=== PATIENT | female | born 1995 | race African-American/Black ===

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

== ENCOUNTER 2018-04-23 09:46 | Emergency (ER) | payer MEDICARE ==
[~2018-04-23] VITALS: Ht 165.1 cm; Wt 83.2 kg
[2018-04-23 09:50] VITALS: BP 118/63; Ht 165.1 cm; Wt 83.2 kg
[2018-04-23] MEDS ORDERED: PRENAVITE1 TAB PO (09:52)
[2018-04-23 10:14] LABS: BASOPHILS 0.2 % (0-2); EOSINOPHILS 1.4 % (0-7); HEMATOCRIT 43.1 % (36.0-48.0); HEMOGLOBIN 15.1 g/dL (12-16); IMMATURE GRANULOCYTES 0.2 % (0-5); LYMPHOCYTES 30.5 % (15-50); MCH 31.9 pg (26.0-34.0); MCV 90.9 fL (80.0-100.0); MEAN PLATELET VOLUME 11.5 fL (7.4-10.4); MONOCYTES 6.5 % (2-11); NEUTROPHILS 61.2 % (40-80); PLATELET COUNT 199 10x3/uL (130-400); RBC 4.74 10x6/uL (4.00-5.40); RDW 12.6 % (11.5-14.5); WBC 6.3 10x3/uL (4.8-10.8)
[2018-04-23 10:21] LABS: HCG SERUM POSITIVE (NEGATIVE)
[2018-04-23 10:26] LABS: APPEARANCE HAZY (CLEAR); BILIRUBIN NEGATIVE (NEGATIVE); COLOR YELLOW (YELLOW); GLUCOSE NEGATIVE (NEGATIVE); KETONE NEGATIVE (NEGATIVE); NITRITE NEGATIVE (NEGATIVE); PH 6.5 (5.0-6.0); PROTEIN NEGATIVE (NEGATIVE); UROBILINOGEN NORMAL (NORMAL)
[2018-04-23 10:29] LABS: ALBUMIN 3.9 g/dL (3.4-5.0); ALKALINE PHOSPHATASE 74 U/L (46-116); ALT (SGPT) 17 U/L (10-68); BILIRUBIN - TOTAL 0.49 mg/dL (0.2-1.3); CALC OSMOLALITY 278 mosm/kg (275-300); CALCIUM 8.9 mg/dL (8.5-10.1); CARBON DIOXIDE 25.8 mmol/L (21.0-32.0); CHLORIDE - SERUM 104 mmol/L (98-107); CREATININE - SERUM 0.7 mg/dL (0.6-1.3); GLUCOSE 89 mg/dL (74-106); POTASSIUM - SERUM 3.4 mmol/L (3.5-5.1); PROTEIN - SERUM 8.5 g/dL (6.4-8.2); SODIUM 141 mmol/L (136-145); UREA NITROGEN 10 mg/dL (7-18); eGFR NON AFRICAN AMERICAN > 90 mL/min (90-120)
[2018-04-23 10:30] LABS: BACTERIA MANY /hpf (NONE SEEN); RED CELLS - URINE RARE /hpf (0-5); WHITE CELLS - URINE 0-5 /hpf (0-5)
== END 2018-04-23 12:41 | disposition home or self-care (01) ==
LOC: D.ER 09:46
PROVIDERS: Family Medicine
DX: O26.891 Other specified pregnancy related conditions, first trimester (principal); Z3A.01 Less than 8 weeks gestation of pregnancy; R10.9 Unspecified abdominal pain; M54.5 Low back pain

== ENCOUNTER → 2018-04-25 07:57 | Outpatient (CLI) | payer MEDICARE ==
[2018-04-23 09:50] VITALS: BMI 30.5
[~2018-04-25 07:57] MED LIST: PRENAVITE1 TAB PO
== END | disposition home or self-care (01) ==
LOC: D.LABREF 04-23 14:03
DX: R10.9 Unspecified abdominal pain (principal)

== ENCOUNTER 2018-07-16 09:44 | Emergency (ER) | payer MEDICARE, MEDICAID ==
[~2018-07-16] VITALS: Ht 165.1 cm; Wt 85.5 kg
[2018-07-16 09:47] VITALS: Ht 165.1 cm; Wt 85.5 kg
[2018-07-16 10:48] LABS: BASOPHILS 0.2 % (0-2); HEMATOCRIT 38.4 % (36.0-48.0); HEMOGLOBIN 13.4 g/dL (12-16); IMMATURE GRANULOCYTES 0.3 % (0-5); LYMPHOCYTES 19.8 % (15-50); MCH 31.7 pg (26.0-34.0); MCHC 34.9 g/dL (31.0-37.0); MCV 90.8 fL (80.0-100.0); MEAN PLATELET VOLUME 11.8 fL (7.4-10.4); MONOCYTES 4.4 % (2-11); NEUTROPHILS 74.3 % (40-80); RBC 4.23 10x6/uL (4.00-5.40); WBC 9.1 10x3/uL (4.8-10.8)
[2018-07-16 10:49] LABS: PLATELET COUNT 157 10x3/uL (130-400)
[2018-07-16 11:06] LABS: ALBUMIN 3.3 g/dL (3.4-5.0); ALKALINE PHOSPHATASE 78 U/L (46-116); ALT (SGPT) 22 U/L (10-68); AMYLASE - SERUM 29 U/L (25-115); BILIRUBIN - TOTAL 0.23 mg/dL (0.2-1.3); CALC OSMOLALITY 272 mosm/kg (275-300); CALCIUM 8.7 mg/dL (8.5-10.1); CARBON DIOXIDE 25.9 mmol/L (21.0-32.0); CHLORIDE - SERUM 104 mmol/L (98-107); CREATININE - SERUM 0.7 mg/dL (0.6-1.3); GLUCOSE 75 mg/dL (74-106); LIPASE 88 U/L (73-393); POTASSIUM - SERUM 3.6 mmol/L (3.5-5.1); PROTEIN - SERUM 7.4 g/dL (6.4-8.2); SODIUM 138 mmol/L (136-145); TROPONIN-I < 0.017 ng/mL (0.000-0.060); UREA NITROGEN 8 mg/dL (7-18); eGFR NON AFRICAN AMERICAN > 90 mL/min (90-120)
[2018-07-16 11:07] LABS: APPEARANCE SL CLDY (CLEAR); BILIRUBIN NEGATIVE (NEGATIVE); COLOR YELLOW (YELLOW); GLUCOSE NEGATIVE (NEGATIVE); KETONE NEGATIVE (NEGATIVE); NITRITE NEGATIVE (NEGATIVE); PROTEIN NEGATIVE (NEGATIVE); SPECIFIC GRAVITY 1.015 (1.005-1.020); WHITE CELLS - URINE OCC /hpf (0-5)
[2018-07-16 11:08] LABS: BACTERIA MANY /hpf (NONE SEEN); EPITHELIAL CELLS 0-5 /hpf (0-5); MUCUS <1+ /lpf (NONE SEEN)
[2018-07-16 14:20] VITALS: BP 108/62
== END 2018-07-16 14:20 | disposition home or self-care (01) ==
LOC: D.ER 09:44
PROVIDERS: Family Medicine
DX: R10.31 Right lower quadrant pain (principal); R82.71 Bacteriuria

== ENCOUNTER 2018-09-19 19:39 | Outpatient (CLI) | payer MEDICARE, MEDICAID ==
[2018-07-16 09:47] VITALS: BMI 31.3
[2018-09-19 19:52] LABS: APPEARANCE CLEAR (CLEAR); BILIRUBIN NEGATIVE (NEGATIVE); COLOR YELLOW (YELLOW); GLUCOSE NEGATIVE (NEGATIVE); KETONE NEGATIVE (NEGATIVE); NITRITE NEGATIVE (NEGATIVE); PROTEIN NEGATIVE (NEGATIVE); UROBILINOGEN NORMAL (NORMAL)
[2018-09-19 19:58] LABS: BACTERIA MANY /hpf (NONE SEEN); EPITHELIAL CELLS 0-5 /hpf (0-5); RED CELLS - URINE 0-5 /hpf (0-5); WHITE CELLS - URINE 0-5 /hpf (0-5)
== END 2018-09-19 20:39 | disposition home or self-care (01) ==
LOC: D.LDO 19:39
PROVIDERS: ATTEND Obstetrics & Gynecology
DX: O26.892 Other specified pregnancy related conditions, second trimester (principal); Z3A.21 21 weeks gestation of pregnancy

== ENCOUNTER → 2018-10-09 20:08 | Outpatient (CLI) | payer MEDICARE, MEDICAID ==
[2018-07-16 09:47] VITALS: BMI 31.3
[~2018-10-09 20:08] MED LIST changes: +TUMS X-STR300 MG
[2018-10-09 21:01] LABS: APPEARANCE CLEAR (CLEAR); COLOR YELLOW (YELLOW); NITRITE NEGATIVE (NEGATIVE); SPECIFIC GRAVITY 1.015 (1.005-1.020)
[2018-10-09 21:02] LABS: BILIRUBIN NEGATIVE (NEGATIVE); GLUCOSE 50 mg/dL (NEGATIVE); KETONE NEGATIVE (NEGATIVE); PROTEIN NEGATIVE (NEGATIVE); UROBILINOGEN NORMAL (NORMAL)
== END | disposition home or self-care (01) ==
LOC: D.LDO 20:08
PROVIDERS: ATTEND Obstetrics & Gynecology
DX: O26.893 Other specified pregnancy related conditions, third trimester (principal); Z3A.29 29 weeks gestation of pregnancy

== ENCOUNTER → 2018-11-11 12:28 | Outpatient (CLI) | payer MEDICARE, OTHER, MEDICAID ==
[2018-07-16 09:47] VITALS: BMI 31.3
[2018-11-11 13:35] LABS: APPEARANCE CLEAR (CLEAR); BILIRUBIN NEGATIVE (NEGATIVE); COLOR YELLOW (YELLOW); GLUCOSE NEGATIVE (NEGATIVE); KETONE NEGATIVE (NEGATIVE); NITRITE NEGATIVE (NEGATIVE); PROTEIN NEGATIVE (NEGATIVE); SPECIFIC GRAVITY 1.015 (1.005-1.020); UROBILINOGEN NORMAL (NORMAL)
== END | disposition home or self-care (01) ==
LOC: D.LDO 12:28
PROVIDERS: ATTEND Obstetrics & Gynecology
DX: R19.7 Diarrhea, unspecified (principal)

== ENCOUNTER → 2018-11-19 09:40 | Outpatient (CLI) | payer MEDICARE, OTHER, MEDICAID ==
[2018-07-16 09:47] VITALS: BMI 31.3
[2018-11-19 10:33] LABS: APPEARANCE SL CLDY (CLEAR); BILIRUBIN NEGATIVE (NEGATIVE); COLOR YELLOW (YELLOW); GLUCOSE NEGATIVE (NEGATIVE); KETONE NEGATIVE (NEGATIVE); NITRITE NEGATIVE (NEGATIVE); PROTEIN NEGATIVE (NEGATIVE); RED CELLS - URINE 25-50 /hpf (0-5); SPECIFIC GRAVITY 1.015 (1.005-1.020); UROBILINOGEN NORMAL (NORMAL); WHITE CELLS - URINE RARE /hpf (0-5)
[2018-11-19 10:34] LABS: BACTERIA MODERATE /hpf (NONE SEEN); EPITHELIAL CELLS 0-5 /hpf (0-5)
== END | disposition home or self-care (01) ==
LOC: D.LDO 09:40
PROVIDERS: ATTEND Obstetrics & Gynecology
DX: O26.893 Other specified pregnancy related conditions, third trimester (principal); Z3A.35 35 weeks gestation of pregnancy

== ENCOUNTER → 2018-12-03 15:37 | Outpatient (CLI) | payer MEDICARE, OTHER, MEDICAID ==
[2018-07-16 09:47] VITALS: BMI 31.3
[2018-12-03 16:59] LABS: APPEARANCE SL CLDY (CLEAR); BILIRUBIN NEGATIVE (NEGATIVE); COLOR YELLOW (YELLOW); GLUCOSE 100 mg/dL (NEGATIVE); KETONE SMALL mg/dL (NEGATIVE); NITRITE NEGATIVE (NEGATIVE); PROTEIN NEGATIVE (NEGATIVE); UROBILINOGEN NORMAL (NORMAL)
== END | disposition home or self-care (01) ==
LOC: D.LDO 15:37
PROVIDERS: ATTEND Obstetrics & Gynecology
DX: O26.893 Other specified pregnancy related conditions, third trimester (principal); Z3A.37 37 weeks gestation of pregnancy

== ENCOUNTER 2018-12-16 20:24 | Inpatient (IN) | payer MEDICARE, OTHER, MEDICAID ==
[~2018-12-16] VITALS: Ht 165.1 cm; Wt 96.4 kg
[2018-12-16 21:08] LABS: HEMATOCRIT 36.5 % (36.0-48.0); HEMOGLOBIN 12.8 g/dL (12-16); MCH 29.2 pg (26.0-34.0); MCHC 35.1 g/dL (31.0-37.0); MCV 83.1 fL (80.0-100.0); MEAN PLATELET VOLUME 12.7 fL (7.4-10.4); RBC 4.39 10x6/uL (4.00-5.40); RDW 13.6 % (11.5-14.5); WBC 8.9 10x3/uL (4.8-10.8)
[2018-12-16 21:20] VITALS: BP 119/69; Ht 165.1 cm; Wt 96.4 kg
[2018-12-16 23:10] LABS: APPEARANCE CLEAR (CLEAR); BILIRUBIN NEGATIVE (NEGATIVE); COLOR YELLOW (YELLOW); GLUCOSE NEGATIVE (NEGATIVE); KETONE NEGATIVE (NEGATIVE); NITRITE NEGATIVE (NEGATIVE); PROTEIN NEGATIVE (NEGATIVE); UROBILINOGEN NORMAL (NORMAL)
--- NOTE | 2018-12-17 18:17 | MORECARE ---
CASE MANAGEMENT DISCHARGE SUMMARY PATIENT: MARY BETH LONG UNIT: [id number] ADM DATE: 12/16/18 AGE: 23 : [birth year] SEX: F ROOM/BED: D.1277 AUTHOR: ADRIANA,DOC PHYSICIAN: REFERRING PHYSICIAN: SAIGE TROTTER MD DATE OF SERVICE: 12/17/18 Discharge Plan Patient Name: MARY BETH LONG [facility] [facility] 1995 Planned Disposition: Home Anticipated Discharge Date: 12/20/18 Discharge Date: Expected LOS: 4 Initial Reviewer: [email or web address] Initial Review Date: 12/16/2018 Generated: 12/17/18 7:17 pm DCPIA - Discharge Planning Initial Assessment Updated by [email or web address]: Justine Davis on 12/17/18 6:16 pm * Is the patient Alert and Oriented? Yes * How many steps to enter\exit or inside your home? * PCP [facility] * Pharmacy [facility] in [place] * Preadmission Environment Home with Family * ADLs Independent * Equipment Bedside Commode Cane Rolling Walker Wheelchair * List name and contact numbers for known caregivers / representatives who currently or will assist patient after discharge: Dc Claudio - [facility] - [phone] * Verbal permission to speak to the caregivers and representatives has been obtained from the patient. Yes * Community resources currently utilized None * Additional services required to return to the preadmission environment? No * Can the patient safely return to the preadmission environment? Yes * Has this patient been hospitalized within the prior 30 days at any hospital? No Patient Name: MARY BETH LONG Page [id number] All edits/amendments must be made on the electronic document DICTATION DATE: 12/17/181815 INSPECTOR MECHANICAL: GUNNER 12/17/181815 RPT#: [id number] DC DATE: STATUS: ADM IN [facility] [address] [place] [address] END OF REPORT
--- NOTE | 2018-12-17 18:26 | MORECARE ---
CASE MANAGEMENT DISCHARGE SUMMARY PATIENT: MARY BETH LONG UNIT: [id number] ADM DATE: 12/16/18 AGE: 23 : [birth year] SEX: F ROOM/BED: D.1277 AUTHOR: ADRIANA,DOC PHYSICIAN: REFERRING PHYSICIAN: MARIN TROTTER MD DATE OF SERVICE: 12/17/18 Discharge Plan Patient Name: MARY BETH LONG Facility: [facility]:[employer] : 1995 Planned Disposition: Home Anticipated Discharge Date: 12/20/18 Discharge Date: Expected LOS: 4 Initial Reviewer: [email or web address] Initial Review Date: 12/16/2018 Generated: 12/17/18 7:26 pm Comments DCP- Discharge Planning Updated by [email or web address]: Justine Davis on 12/17/18 5:[address] Patient Name: MARY BETH LONG Admission Status: Elective Accout number: [id number] Admission Date: 12-16-2018 : 1995 Admission Diagnosis: Attending: Marin Trotter Current LOS: 1 Anticipated DC Date: 12-20-2018 Planned Disposition: Home Primary Insurance: [employer] Discharge Planning Comments: DC PLAN: Return home independently with her . ANTICIPATED DC NEEDS: Denied known dc needs at this time. CM met with patient to complete initial dc planning assessment. CM educated patient on the CM role and verbal consent given by patient to complete assessment. CM verified patient's address, phone number, and emergency contact phone numbers. Patient lives at home with her and reports she is independent in her care. The patient had a urine odor during assessment At discharge patient plans to return home with her and feels this is a safe discharge. CM discussed availability of home health, rehab services, and medical equipment. Patient denied known discharge needs at this time. Patient reports her will transport him/her home at time of discharge. CM will continue to follow and will assist as needed with dc plans/needs. Quarry Supervisor [employer] Stone: Justine Davis RN, [facility] DCPIA - Discharge Planning Initial Assessment Updated by [email or web address]: Justine Davis on 12/17/18 6:16 pm * Is the patient Alert and Oriented? Yes * How many steps to enter\exit or inside your home? * PCP Dr. Keiry Campa * Pharmacy [facility] in [place] * Preadmission Environment Home with Family * ADLs Independent * Equipment Bedside Commode Cane Rolling Walker Wheelchair * List name and contact numbers for known caregivers / representatives who currently or will assist patient after discharge: Dc Claudio - [facility] - [phone] * Verbal permission to speak to the caregivers and representatives has been obtained from the patient. Yes * Community resources currently utilized None * Additional services required to return to the preadmission environment? No * Can the patient safely return to the preadmission environment? Yes * Has this patient been hospitalized within the prior 30 days at any hospital? No Last DP export: 12/17/18 5:17 p Patient Name: MARY BETH LONG Page [id number] All edits/amendments must be made on the electronic document DICTATION DATE: 12/17/181825 ENGINEER FISHING VESSEL: GUNNER 12/17/181825 RPT#: [id number] DC DATE: STATUS: ADM IN [facility] [address] [place] [address] END OF REPORT
--- NOTE | 2018-12-17 19:30 | NUR ---
REC'D PT AA&O X 4. SITTING UP IN BED VISITING W/GUESTS. SHIFT ASSESSMENT COMPLETED. SEE FLOWSHEET. PAIN ASSESSED. PT REPORTS ABD CRAMPING THAT SHE RATES 7/10. TORADOL OFFERED. PT ACCEPTS. SEE EMAR. PT DESIRES TO SHOWER ONCE FAMILY LEAVES. PT ASKED TO REPOR TO THIS RN WHEN SHE WANTS TO SHOWER AND BATHING ITEMS WILL BE BROUGHT TO HER. FAMILY BROUGHT PT FOOD TO EAT FOR DINNER. PT DENIES NEEDS AT THIS TIME.
[2018-12-17 19:31] VITALS: BP 117/70
--- NOTE | 2018-12-17 20:30 | NUR ---
PT DESIRES TO SHOWER AT THIS TIME. BATHING ITEMS PROVIDED. PT'S IV SITE COVERED. PT IN SHOWER.
--- NOTE | 2018-12-17 21:00 | NUR ---
PT OUT OF SHOWER. INTO HER OWN CLOTHES. PT TRANSFERED AMBULATORY TO ROOM 1257. ORIENTED TO ROOM,CALL LIGHT AND PHONE. [facility] FILLED W/ICE WATER AND PP TREAT BOX SERVED. INFANT TRANSFERED VIA OPEN CRIB WITH PT. PT DENIES FURTHER NEEDS AT THIS TIME. REPORTS SHE'S GOING TO BEGIN FEEDING INFANT.
--- NOTE | 2018-12-17 22:24 | NUR ---
C/O ABD CRAMPING 10/11, SCHEDULED TYLENOL GIVEN PER ORDER. REFUSES MILK OF MAG. ICE CREAM AND SPRITE PROVIDED PER PT REQUEST. DENIES ADDITIONAL NEEDS. BED IN LOW POSITION WITH UPPER SIDE RAILS RAISED X2. CALL LIGHT AND PHONE WITHIN REACH.
--- NOTE | 2018-12-17 23:19 | NUR ---
ROUNDS MADE FOR PAIN REASSESSMENT. PT REPORTS PAIN IS INTERMITTENT AND REMAINS THE SAME 11/10. DENIES NEEDING ADDITIONAL PAIN INTERVENTIONS AT THIS TIME. UNDERSTANDS NEXT PAIN MEDICATION WILL BE TORADOL AT 0145. DECLINES OFFERS TO BRING HER ANY ADDITIONAL DRINK OR FOOD. MULTIPLE FAMILY AT BED SDIE.
--- NOTE | 2018-12-18 01:40 | NUR ---
ROUNDS MADE FOR PAIN AND NEEDS ASSESSMENT. PT DENIES NEEDS. REPORTS ABD CRAMPING 08/11. TORADOL OFFERED. PT ACCEPTS AND ADMINISTERED. SEE EMAR.
--- NOTE | 2018-12-18 02:28 | NUR ---
PAIN REASSESSMENT COMPLETED. RESTING QUIETLY WITH EYES CLOSED LAYING ON LEFT SIDE. RESP REGULAR AND UNLABORED, NO S/S OF DISTRESS NOTED. BED IN LOW POSITION WITH UPPER SIDE RAILS RAISED X2. CALL LIGHT AND PHONE WITHIN REACH.
--- NOTE | 2018-12-18 06:10 | NUR ---
ROUNDS MADE. PT LYING AWAKE IN BED ON CELL PHONE. DENIES PAIN OR NEEDS AT THIST CHANELLE.
--- NOTE | 2018-12-18 06:23 | NUR ---
PT REQUESTING A FRESH GOWN, BETADINE AND DIANA BOTTLE. ITEMS PROVIDED. DENIES FURTHER NEEDS
[2018-12-18 07:28] VITALS: BP 111/70
--- NOTE | 2018-12-18 07:28 | NUR ---
SHIFT ASSESSMENT COMPLETED, VSS, AFEBRILE, RESP EVEN AND UNLABORED, HEART RRR LUNGS CTAB, BOWEL SOUNDS PRESENT AND ACTIVE, FUNDUS FIRM AT U/2 AND MIDLINE, LOCHIA RUBRA LIGHT AMOUNT, NO CLOTS, VOIDING WITHOUT DIFFICULTY, THOMAS FREELY, NEGATIVE DEDE'S SIGN B LE. SITTING UP IN BED, TALKATIVE, STATES DESIRE TO GO HOME TODAY WITH HER MOTHER. RATES PAIN A 6/10, ACETAMINOPHEN 650 MG PO GIVEN WITH SIPS WATER. DENIES OTHER NEEDS AT THIS TIME, IN ROLLING CRIB ADJACENT TO BED NAD NOTED. CALL LIGHT IN EASY REACH, BED IN LOW POSITION, BED BRAKES LOCKED, SIDE RAILS UP X2, WILL MONITOR.
[2018-12-18 08:11] LABS: RAPID PLASMA REAGIN Non Reactive (Non Reactive)
--- NOTE | 2018-12-18 08:15 | NUR ---
PAIN REASSESSMENT COMPLETED, PAIN RATING 2-3 ON NUMERIC PAIN SCALE, DENIES OTHER NEEDS, TOLERATING PO INTAKE WITHOUT DIFFICULTY. CONTINUE TO MONITOR.
--- NOTE | 2018-12-18 08:55 | NUR ---
DR TROTTER TO PT ROOM ON ROUNDS.
--- NOTE | 2018-12-18 09:25 | NUR ---
PT C/O LOW BACK PAIN AND ABD CRAMPING, REQUESTS PRN MED; SAME PROVIDED. CAN OF SODA ALSO PROVIDED WITH CUP OF ICE, NO OTHER NEEDS VOICED AT THIS TIME, REVIEWED PLAN OF CARE, STATES UNDERSTANDING OF ALL INFO RELAYED. CONTINUE TO MONITOR.
--- NOTE | 2018-12-18 10:15 | NUR ---
SALINE LOCK DISCONTINUED, CATHETER TIP INTACT, BANDAID APPLIED TO SITE. ASSISTED PT WITH FEEDING OF , INSTRUCTIONS GIVEN PT STATES UNDERSTANDING. ORANGE JUICE PROVIDED UPON REQUEST, NO OTHER NEEDS VOICED AT THIS TIME. CONTINUE TO MONITOR.
[2018-12-18] MEDS ORDERED: TYLENOL #4 W/CO1 TAB PO ×2 (10:37→10:38)
[2018-12-18] MEDS ORDERED: IBUPROFEN800 MG PO ×2 (10:37→10:38)
--- NOTE | 2018-12-18 11:16 | NUR ---
PT RESTING WITH EYES CLOSED IN LEFT LATERAL POSITION RESP EVEN AND UNLABORED ON ROUNDS, ROUSES WITH THIS RN ENTRY TO ROOM. NO NEEDS VOICED WILL MONITOR.
--- NOTE | 2018-12-18 12:35 | NUR ---
ROUNDS COMPLETED, FAMILY AND FRIENDS PRESENT IN ROOM, DENIES NEEDS OR CONCERNS AT THIS TIME. CALL LIGHT IN EASY REACH.
--- NOTE | 2018-12-18 13:40 | NUR ---
ROUNDS COMPLETED, RESP EVEN AND UNLABORED, AMBULATORY IN ROOM, NAD NOTED. DENIES NEEDS. CONTINUE TO MONITOR.
--- NOTE | 2018-12-18 14:51 | NUR ---
SCHEDULED TYLENOL ADMINISTERED WITH SIP OF COLA. NAD NOTED.
--- NOTE | 2018-12-18 14:55 | NUR ---
REVIEWED DISCHARGE INSTRUCTIONS WITH PT, QUESTIONS ANSWERED, PRESCIPTIONS GIVEN TO PT FOR MOTRIN AND TYLENOL #4, HANDOUTS PROVIDED FOR REFERRAL AT HOME ON CARE, CONTROL OPTIONS, AND PP DEPRESSION. STATES UNDERSTANDING OF ALL INFORMATION PROVIDED. CUP OF SPRITE AND ICE PROVIDED UPON REQUEST.
--- NOTE | 2018-12-18 15:20 | NUR ---
REQUESTS FORMULA FOR FEEDING, SAME PROVIDED, NO OTHER NEEDS VOICED AT THIS TIME. CONTINUE TO MONITOR.
--- NOTE | 2018-12-18 16:30 | NUR ---
MEAL TRAY PROVIDED TO PT AND GUEST. DENIES OTHER NEEDS AT THIS TIME. WILL MONITOR.
--- NOTE | 2018-12-18 17:11 | NUR ---
PT DISCHARGED TO HOME WITH VIA WHEELCHAIR TO PRIVATE AUTO. NAD NOTED.
--- NOTE | 2018-12-18 19:33 | MORECARE ---
CASE MANAGEMENT DISCHARGE SUMMARY PATIENT: MARY BETH LONG UNIT: [id number] ADM DATE: 12/16/18 AGE: 23 : 97 SEX: F ROOM/BED: D.1257 AUTHOR: TEJ WRIGHT PHYSICIAN: REFERRING PHYSICIAN: SAIGE TROTTER MD DATE OF SERVICE: 12/18/18 Discharge Plan Patient Name: MARY BETH LONG Facility: [facility]:[place] : 1995 Planned Disposition: Home Anticipated Discharge Date: 12/20/18 Discharge Date: 12/18/2018 Expected LOS: 4 Initial Reviewer: [email or web address] Initial Review Date: 12/16/2018 Generated: 12/18/18 8:32 pm DCPIA - Discharge Planning Initial Assessment Updated by [email or web address]: Justine Davis on 12/17/18 6:16 pm * Is the patient Alert and Oriented? Yes * How many steps to enter\exit or inside your home? * PCP Dr[facility] Ricci [facility] * Pharmacy [email or web address] in [place] * Preadmission Environment Home with Family * ADLs Independent * Equipment Bedside Commode Cane Rolling Walker Wheelchair * List name and contact numbers for known caregivers / representatives who currently or will assist patient after discharge: [facility] [phone] * Verbal permission to speak to the caregivers and representatives has been obtained from the patient. Yes * Community resources currently utilized None * Additional services required to return to the preadmission environment? No * Can the patient safely return to the preadmission environment? Yes * Has this patient been hospitalized within the prior 30 days at any hospital? No Last DP export: 12/17/18 5:26 p Patient Name: MARY BETH LONG Page 92302 at 1933 All edits/amendments must be made on the electronic document DICTATION DATE: 12/18/181931 RIM TECHNICIAN: GUNNER 12/18/181931 RPT#: [id number] DC DATE:12/18/18 STATUS: DIS IN [place] [address] [place] [address] END OF REPORT
--- NOTE | 2018-12-18 19:45 | MORECARE ---
CASE MANAGEMENT DISCHARGE SUMMARY PATIENT: MARY BETH LONG UNIT: [id number] ADM DATE: 12/16/18 AGE: 23 : [birth year] SEX: F ROOM/BED: D.1257 AUTHOR: ADRIANADOC PHYSICIAN: REFERRING PHYSICIAN: SAIGE TROTTER MD DATE OF SERVICE: 12/18/18 Discharge Plan Patient Name: MARY BETH LONG Facility: [facility]:[place] : 1995 Planned Disposition: Home Anticipated Discharge Date: 12/20/18 Discharge Date: 12/18/2018 Expected LOS: 4 Initial Reviewer: [email or web address] Initial Review Date: 12/16/2018 Generated: 12/18/18 8:45 pm Comments DCP- Discharge Planning Updated by [email or web address]: Manda Mcmanus on 12/18/18 6:[address] CM RECEIVED REFERRAL FROM [employer]ACLE CONSULTANT, KELLEN MAKI. SHE STATED THE NURSING ASSESSMENT SENT CM REFERRAL. 1300 CM MET WITH THE PATIENT IS THE ROOM. HER FATHER WAS PRESENT AND THE INFANT WAS RESTING. SHE WAS COMFORTABLE WITH HER FATHER BEING PRESENT AND GAVE PERMISSION TO PROCEED WITH ASSESSMENT. SHE WILL BE DISCHARGING TO [address] [place] [address] IN [place] [address]. PLAN IS FOR DISCHARGE THIS AFTERNOON. SHE IS DISCHARGING TO HER PARENTS HOME AND HER FATHER , NELLY LONG, WILL BE PROVIDING TRANSPORTATION. KORINA VIRGEN IS THE FATHER OF THE BABY. HJE WILL BE PRESENT AT TIMES TO ASSIST W/ THE BABY. SHE STATES SHE HAS GOOD FAMILY SUPPORT. SHE IS FAMILIAR WITH [employer] AND HAS ATTENDED CLASS WITH ANOTHER FAMILY MEMBER AT [employer]. STATES SHE HAS EVERYTHING THAT SHE NEEDS. CAR SEAT IS PRESNT WITH OTHER INFANT ITEMS. SHE HAD NO CONCERNS OR QUESTIONS. CM SPOKE WITH THE NURSES. THEY ARE UNAWARE OF ANY CONCERNS. STATES SHE SEEMS TO BE DISCHARGING TO A SUPPORTIVE ENVIROMENT. NO NEEDS IDENTIFIED. DCPIA - Discharge Planning Initial Assessment Updated by [email or web address]: Justine Davis on 12/17/18 6:16 pm * Is the patient Alert and Oriented? Yes * How many steps to enter\exit or inside your home? * PCP Dr. Keiry Townsend [place] * Pharmacy [facility] in [place] * Preadmission Environment Home with Family * ADLs Independent * Equipment Bedside Commode Cane Rolling Walker Wheelchair * List name and contact numbers for known caregivers / representatives who currently or will assist patient after discharge: Dc Claudio - spouse - [phone] * Verbal permission to speak to the caregivers and representatives has been obtained from the patient. Yes * Community resources currently utilized None * Additional services required to return to the preadmission environment? No * Can the patient safely return to the preadmission environment? Yes * Has this patient been hospitalized within the prior 30 days at any hospital? No Last DP export: 12/18/18 6:33 p Patient Name: MARY BETH LONG Page 44436 at 1945 All edits/amendments must be made on the electronic document DICTATION DATE: 12/18/181944 CURTAIN MENDER: GUNNER 12/18/181944 RPT#: [id number] DC DATE:12/18/18 STATUS: DIS IN [facility] [address] [place] [address] END OF REPORT
--- NOTE | 2018-12-20 17:03 | MORECARE ---
CASE MANAGEMENT DISCHARGE SUMMARY PATIENT: MARY BETH LONG UNIT: [id number] ADM DATE: 12/16/18 AGE: 23 : [birth year] SEX: F ROOM/BED: D.1257 AUTHOR: ADRIANADOC PHYSICIAN: REFERRING PHYSICIAN: SAIGE TROTTER MD DATE OF SERVICE: 12/20/18 Discharge Plan Patient Name: MARY BETH LONG Facility: [facility]:[place] : 1995 Planned Disposition: Home Anticipated Discharge Date: 12/20/18 Discharge Date: 12/18/2018 Expected LOS: 4 Initial Reviewer: [email or web address] Initial Review Date: 12/16/2018 Generated: 12/20/18 6:03 pm Comments DCP- Discharge Planning Updated by [id number]: Manda Mcmanus on 12/18/18 6:[address] CM RECEIVED REFERRAL FROM [employer]LECTION SYSTEM OPERATOR, KELLEN MAKI. SHE STATED THE NURSING ASSESSMENT SENT CM REFERRAL. 1300 CM MET WITH THE PATIENT IS THE ROOM. HER FATHER WAS PRESENT AND THE INFANT WAS RESTING. SHE WAS COMFORTABLE WITH HER FATHER BEING PRESENT AND GAVE PERMISSION TO PROCEED WITH ASSESSMENT. SHE WILL BE DISCHARGING TO [address] [place] [address] IN [place] [address]. PLAN IS FOR DISCHARGE THIS AFTERNOON. SHE IS DISCHARGING TO HER PARENTS HOME AND HER FATHER , NELLY LONG, WILL BE PROVIDING TRANSPORTATION. KORINA VIRGEN IS THE FATHER OF THE BABY. HJE WILL BE PRESENT AT TIMES TO ASSIST W/ THE BABY. SHE STATES SHE HAS GOOD FAMILY SUPPORT. SHE IS FAMILIAR WITH [employer] AND HAS ATTENDED CLASS WITH ANOTHER FAMILY MEMBER AT [employer]. STATES SHE HAS EVERYTHING THAT SHE NEEDS. CAR SEAT IS PRESNT WITH OTHER INFANT ITEMS. SHE HAD NO CONCERNS OR QUESTIONS. CM SPOKE WITH THE NURSES. THEY ARE UNAWARE OF ANY CONCERNS. STATES SHE SEEMS TO BE DISCHARGING TO A SUPPORTIVE ENVIROMENT. NO NEEDS IDENTIFIED. DCPIA - Discharge Planning Initial Assessment Updated by [id number]: Justine Davis on 12/17/18 6:16 pm * Is the patient Alert and Oriented? Yes * How many steps to enter\exit or inside your home? * PCP Dr. Keiry Townsend [place] * Pharmacy [facility] in [place] * Preadmission Environment Home with Family * ADLs Independent * Equipment Bedside Commode Cane Rolling Walker Wheelchair * List name and contact numbers for known caregivers / representatives who currently or will assist patient after discharge: Dc Claudio - spouse - [phone] * Verbal permission to speak to the caregivers and representatives has been obtained from the patient. Yes * Community resources currently utilized None * Additional services required to return to the preadmission environment? No * Can the patient safely return to the preadmission environment? Yes * Has this patient been hospitalized within the prior 30 days at any hospital? No Last DP export: 12/18/18 6:45 p Patient Name: MARY BETH LONG Page 10691 at 1703 All edits/amendments must be made on the electronic document DICTATION DATE: 12/20/181702 PRINCIPAL ACCOUNTS CLERK: GUNNER 12/20/181702 RPT#: [id number] DC DATE:12/18/18 STATUS: DIS IN [address] [place] [address] END OF REPORT
== END 2018-12-18 17:11 | disposition home or self-care (01) | DRG 807 ==
LOC: D.LD 20:24
PROVIDERS: ADMIT Obstetrics & Gynecology; ATTEND Obstetrics & Gynecology
PROC: 10E0XZZ Delivery of Products of Conception, External Approach (ICD-10-PCS; principal; 2018-12-17)
PROC: 0W8NXZZ Division of Female Perineum, External Approach (ICD-10-PCS; 2018-12-17)
DX: O66.0 Obstructed labor due to shoulder dystocia (principal); Z37.0 Single live birth; Z3A.38 38 weeks gestation of pregnancy

== ENCOUNTER 2019-01-27 17:34 | Emergency (ER) | payer MEDICARE, OTHER, MEDICAID ==
[~2019-01-27] VITALS: Ht 165.1 cm; Wt 89.5 kg
[~2019-01-27 17:34] MED LIST changes: +IBUPROFEN800 MG PO; +TYLENOL #4 W/CO1 TAB PO
[2019-01-27 17:51] VITALS: Ht 165.1 cm; Wt 89.5 kg
[2019-01-27] MEDS ORDERED: CELEXA20 MG PO (17:55)
[2019-01-27 18:43] LABS: APPEARANCE TURBID (CLEAR); BACTERIA NONE SEEN /hpf (NEGATIVE); BILIRUBIN NEGATIVE (NEGATIVE); COLOR RED (YELLOW); EPITHELIAL CELLS NSEEN /hpf (0-5); GLUCOSE NEGATIVE (NEGATIVE); KETONE NEGATIVE (NEGATIVE); NITRITE NEGATIVE (NEGATIVE); PROTEIN 2+ mg/dL (NEGATIVE); RED CELLS - URINE >50 /hpf (0-5); UROBILINOGEN NORMAL (NORMAL); WHITE CELLS - URINE 0-5 /hpf (NEGATIVE)
[2019-01-27 18:56] LABS: HCG SERUM NEGATIVE (NEGATIVE)
[2019-01-27 18:57] LABS: BASOPHILS 0.4 % (0-2); EOSINOPHILS 2.3 % (0-7); HEMATOCRIT 40.9 % (36.0-48.0); HEMOGLOBIN 13.7 g/dL (12-16); LYMPHOCYTES 39.1 % (15-50); MCH 29.3 pg (26.0-34.0); MCHC 33.5 g/dL (31.0-37.0); MCV 87.4 fL (80.0-100.0); MEAN PLATELET VOLUME 11.9 fL (7.4-10.4); MONOCYTES 8.9 % (2-11); NEUTROPHILS 49.3 % (40-80); RBC 4.68 10x6/uL (4.00-5.40); RDW 15.4 % (11.5-14.5); WBC 5.6 10x3/uL (4.8-10.8)
[2019-01-27 19:01] LABS: PLATELET COUNT 194 10x3/uL (130-400)
[2019-01-27 19:02] LABS: ALBUMIN 3.7 g/dL (3.4-5.0); ALKALINE PHOSPHATASE 120 U/L (46-116); ALT (SGPT) 19 U/L (10-68); BILIRUBIN - TOTAL 0.58 mg/dL (0.2-1.3); CALC OSMOLALITY 281 mosm/kg (275-300); CALCIUM 8.7 mg/dL (8.5-10.1); CARBON DIOXIDE 28.4 mmol/L (21.0-32.0); CHLORIDE - SERUM 107 mmol/L (98-107); CREATININE - SERUM 0.7 mg/dL (0.6-1.3); GLUCOSE 85 mg/dL (74-106); POTASSIUM - SERUM 3.5 mmol/L (3.5-5.1); PROTEIN - SERUM 8.1 g/dL (6.4-8.2); SODIUM 142 mmol/L (136-145); UREA NITROGEN 13 mg/dL (7-18); eGFR NON AFRICAN AMERICAN > 90 mL/min (90-120)
[2019-01-27 19:40] VITALS: BP 116/75
== END 2019-01-27 19:40 | disposition home or self-care (01) ==
LOC: D.ER 17:34
PROVIDERS: Family Medicine
DX: O72.2 Delayed and secondary postpartum hemorrhage (principal)